=== PATIENT | female | born 1945 | race Hispanic/Latino ===

== ENCOUNTER → 2025-02-21 | Outpatient (CLI) | payer OTHER, MEDICARE ==
--- NOTE | 2025-02-21 20:23 | HMCIMG ---
EXAM: LEFT KNEE/PATELLA RADIOGRAPH, 2 VIEWS Technique: Anteroposterior and lateral views of the left knee and patella were obtained. No substantial technical limitations are identified. Clinical Information: Internal derangement of the left knee. Comparison: None. Findings: Bones and joints: No acute fracture or dislocation is identified. Alignment: Overall alignment is maintained on the provided projections. Joint spaces: There is reduction of the medial tibiofemoral joint space. Degenerative changes: Periarticular osteophytes are present, greatest at the medial compartment, compatible with osteoarthritic change. Patella and extensor mechanism: Patella maintains expected position without acute abnormality. Joint effusion: No definite suprapatellar effusion is identified on the lateral view. Soft tissues: Mild vascular calcifications are present in the region of the knee. No focal soft tissue swelling or soft tissue calcification otherwise identified. Postsurgical changes and amputations: No postsurgical changes or amputations are identified. Impression: * Osteoarthritic change of the left knee with medial tibiofemoral joint space narrowing and periarticular osteophytes???overall compatible with at least mild to moderate severity (approximately Kellgren???Paxton grade 2 by description). * Mild vascular calcifications about the knee, which may reflect peripheral arterial atherosclerosis. * No acute osseous abnormality or malalignment. * Recommendation: Correlate clinically for mechanical symptoms. Consider guideline-based conservative management (analgesia, physical therapy, activity modification). If internal derangement remains a concern, consider magnetic resonance imaging to evaluate menisci, cartilage, and ligaments. If clinically warranted, consider assessment of vascular risk factors given the vascular calcifications. /B[place]olph
== END | disposition home or self-care (01) ==
LOC: RAH 11:35
PROVIDERS: ATTEND Internal Medicine
DX: M17.12 Unilateral primary osteoarthritis, left knee (principal); M23.92 Unspecified internal derangement of left knee; M25.762 Osteophyte, left knee; M25.862 Other specified joint disorders, left knee
CPT/HCPCS: 73560